=== PATIENT | male | born 1995 | race Caucasian/White ===

== ENCOUNTER 2021-05-02 15:07 | Emergency (ER) | payer OTHER, SELFPAY ==
[2021-05-02 15:11] VITALS: BP 162/97; PULSE 89; RESP 18; TEMP 36.8; O2SAT 99
[2021-05-02 16:05] LABS: Add Manual Diff / Slide Review NO; Basophils Absolute Auto 0 /uL (0-100); Basophils Percent Auto 0.2 % (0-2); Eosinophils Absolute Auto 100 /uL (0-450); Eosinophils Percent Auto 1.4 % (2-4); Hematocrit 50.8 % (41-53); Hemoglobin 17.2 g/dL (13.5-17.5); Lymphocytes Absolute Auto 1700 /uL (1100-4500); Lymphocytes Percent Auto 30.7 % (25-40); Mean Corpuscular HGB Conc 33.9 % (30-36); Mean Corpuscular Hemoglobin 29.8 PG (26-34); Monocytes Absolute Auto 700 /uL (0-900); Monocytes Percent Auto 12.6 % (3-14); Neutrophils Absolute Auto 3100 /uL (1500-7000); Neutrophils Percent Auto 55.1 % (50-75); Platelet Count 225 X10^3/uL (150-400); Red Blood Cell Count 5.77 X10^6/uL (4.5-5.9); Red Cell Distribution Width 13.3 % (11.6-14.8); White Blood Cell Count 5.6 X10^3/uL (4.5-11.0)
[2021-05-02 16:11] LABS: Alanine Aminotransferase 32 IU/L (<50); Albumin 4.9 g/dL (3.5-5.0); Albumin Globulin Ratio 1.3 (1.0-2.8); Alkaline Phosphatase 53 U/L (38-126); Aspartate Aminotransferase 33 IU/L (17-59); BUN Creatinine Ratio 11.5 (6-22); Bilirubin Total 0.9 mg/dL (0.2-1.3); Blood Urea Nitrogen 11 mg/dL (9-20); Calcium 10.3 mg/dL (8.4-10.2); Carbon Dioxide 30 mmol/L (22-32); Chloride 103 mmol/L (98-107); Estimated Glomerular Filt Rate > 60.0 mL/min (>60); Globulin 3.9 g/dL (1.7-4.1); Glucose 95 mg/dL (70-100); HEMOLYSIS < 15 (0-50); Lipase 76 U/L (23-300); Potassium 4.1 mmol/L (3.4-5.1); Sodium 140 mmol/L (137-145); Total Protein 8.8 g/dL (6.3-8.2)
[2021-05-02 18:32] VITALS: BP 158/85
[2021-05-02 18:33] VITALS: PULSE 92; O2SAT 97
--- NOTE | 2021-05-02 18:42 | ED_ITS ---
HPI - Abdominal Pain General Chief Complaint: Abdominal Pain Stated Complaint: RT SIDE ABDOMINAL PAIN Time Seen by Provider: 05/02/21 18:38 Source: patient Mode of arrival: Ambulatory Limitations: no limitations History of Present Illness HPI narrative: This is a 25-year-old male comes emergency department with concern for right- sided abdominal pain for the past 2 days. Patient states it has been very mild he took some ibuprofen last night. Patient states he has had a low-grade temperature that has not been over 100F. He has not any nausea or vomiting. No diarrhea constipation. No dysuria urgency or frequency. No black or flank pain. The pain has not migrated removed location he has appreciated lumps or bulges. He is otherwise healthy with no daily medications. No prior surgeries. He is allergic to penicillin. He is accompanied by his today. Related Data Home Medications Medication Instructions Recorded Confirmed [STRATERA] #0 12/10/03 Allergies Allergy/AdvReac Type Severity Reaction Status Date / Time PENICILLIN Allergy Mild Rash Uncoded 08/09/17 13:06 Review of Systems Review of Systems ROS Unobtainable: All systems reviewed & are unremarkable except as noted in HPI and below Patient History Social History Smoking Status: Never smoker Smoking Status: Never smoker Exam Narrative Exam Narrative: GENERAL: Alert and oriented x three, well-appearing male in no acute distress. Patient sitting the edge of bed comfortably. HEENT: Head normocephalic, atraumatic, EOMI, pupils reactive, face symmetric, moist mucous membranes NECK: Supple, full range of motion CARDIOVASCULAR: Regular rate and rhythm without murmurs, rubs or gallops. RESPIRATORY: Breath sounds equal bilaterally, no wheezes rales or rhonchi. ABDOMEN: Soft, patient has very mild right lower quadrant tenderness with very deep palpation. Otherwise he is nontender with mild to moderate palpation. Normoactive bowel sounds all 4 quadrants. No guarding or rebound, rigidity, no mass. : No CVA tenderness EXTREMITIES: Normal range of motion, no clubbing or edema. Neurovascularly intact NEUROLOGICAL: Cranial nerves II through XII grossly intact. Moving all ext remities SKIN: Warm, dry, no petechiae, no rashes or lesions. Initial Vital Signs Initial Vital Signs: Vital Signs Temperature 98.2 F 05/02/21 15:11 Pulse Rate 89 05/02/21 15:11 Respiratory Rate 18 05/02/21 15:11 Blood Pressure 162/97 H 05/02/21 15:11 Pulse Oximetry 99 05/02/21 15:11 Course Orders Ordered: ED Orders 05/02/21 14:18 Complete Blood Count AUTO DIFF Stat Comprehensive Metabolic Panel Stat Lipase Stat 05/02/21 15:58 EKG-12 Lead Stat Vital Signs Vital signs: Vital Signs - 8 hr 05/02/21 15:11 05/02/21 18:32 05/02/21 18:33 Temperature 98.2 F Pulse Rate 89 92 H Respiratory Rate 18 Blood Pressure 162/97 H 158/85 H Pulse Oximetry 99 97 MDM - Abdominal Pain Lab Data Result diagrams: 05/02/21 14:18 05/02/21 14:18 Labs: Lab Results 05/02/21 05/02/21 Range/Units 14:18 14:18 WBC 5.6 (4.5-11.0) X10^3/uL RBC 5.77 (4.5-5.9) X10^6/uL Hgb 17.2 (13.5-17.5) g/dL Hct 50.8 (41-53) % MCV 88.0 (80-100) fL MCH 29.8 (26-34) PG MCHC 33.9 (30-36) % RDW 13.3 (11.6-14.8) % Plt Count 225 (150-400) X10^3/uL Neut % (Auto) 55.1 (50-75) % Lymph % (Auto) 30.7 (25-40) % [place] % (Auto) 12.6 (3-14) % Eos % (Auto) 1.4 L (2-4) % Baso % (Auto) 0.2 (0-2) % Neut # (Auto) 3100 (6445-3118) /uL Lymph # (Auto) 1700 (4827-2267) /uL [place] # (Auto) 700 (0-900) /uL Eos # (Auto) 100 (0-450) /uL Baso # (Auto) 0 (0-100) /uL Sodium 140 (137-145) mmol/L Potassium 4.1 (3.4-5.1) mmol/L Chloride 103 (98-107) mmol/L Carbon Dioxide 30 (22-32) mmol/L BUN 11 (9-20) mg/dL Creatinine 0.96 (0.66-1.25) mg/dL Estimated GFR > 60.0 (>60) mL/min BUN/Creatinine Ratio 11.5 (6-22) Glucose 95 (70-100) mg/dL Calcium 10.3 H (8.4-10.2) mg/dL Total Bilirubin 0.9 (0.2-1.3) mg/dL AST 33 (17-59) IU/L ALT 32 (<50) IU/L Alkaline Phosphatase 53 (38-126) U/L Total Protein 8.8 H (6.3-8.2) g/dL Albumin 4.9 (3.5-5.0) g/dL Globulin 3.9 (1.7-4.1) g/dL Albumin/Globulin Ratio 1.3 (1.0-2.8) Lipase 76 (23-300) U/L Point of care testing: Urine Dip Bedside Urine Glucose Negative Bedside Urine Bilirubin - Negative Bedside Urine Ketone - Negative Urine Specific [place] 1.015 Bedside Urine Occult Blood - Negative Bedside Urine pH 7 Bedside Urine Protein - Negative Bedside Urine Urobilinogen - Negative Bedside Urine Nitrite - Negative Bedside Urine Leukocytes - Negative Esterase MDM Narrative Medical decision making narrative: Discussed with patient his labs and physical evaluation are somewhat reassuring but he does have right lower quadrant tenderness although quite mild on examination. Patient and I discussed options including CT imaging, ultrasound which may or may not be able to visualize his appendix or watchful waiting with for intent to return if worsening symptoms. After discussion of risks versus benefits the patient elects the ladder with watchful waiting. We discussed return precautions and signs and symptoms to watch for. Discharge Plan Departure Patient Disposition: Home Clinical Impression: Abdominal pain Instructions: DI for Abdominal Pain-Adult Activity Restrictions/Additional Instructions: Follow up in the next 2-3 days if your symptoms are not improving. There is a potential for appendicitis as discussed based on your exam findings today I think watchful waiting is appropriate but it is important to return for re- evaluation if not improving or worsening. You may take Tylenol and/or ibuprofen for pain [id number]. Return for fevers greater 100.4 F, new, worsening or increasing abdominal pain particularly on the right side, back or flank pain, black or bloody stools, vomiting, lightheadedness or passing out or other new or concerning symptoms. Prescriptions: No Action [STRATERA] Qty: 0 0RF
== END 2021-05-02 19:00 | disposition home or self-care (01) ==
PROVIDERS: Emergency Medicine; Emergency Provider Emergency Medicine
DX: R10.31 Right lower quadrant pain (principal)
CPT/HCPCS: 36415; 80053; 81003; 83690; 85025; 99283

== ENCOUNTER → 2022-07-25 08:21 | Outpatient (CLI) | payer OTHER, MEDICAID, SELFPAY ==
--- NOTE | 2022-07-25 | DI.US.S_ITS ---
PROCEDURE: US ABDOMEN COMPLETE INDICATIONS: Unspecified abdominal pain TECHNIQUE: Real-time scanning was performed of the abdominal and retroperitoneal organs, with image documentation. COMPARISON: None. FINDINGS: Liver: Liver is normal in size and homogeneous in echotexture. Gallbladder: No gallstones identified. Normal gallbladder wall. No pericholecystic fluid. Negative sonographic Pham sign. Biliary ducts: Intrahepatic bile ducts are non-dilated. Extrahepatic bile duct caliber measures 3.5 mm. Normal is 6-7 mm or less in diameter, or 10 mm or less post-cholecystectomy. Pancreas: Visualized portions of the pancreas are sonographically normal. Spleen: Spleen is normal in size and homogeneous in echotexture. Kidneys: Kidneys are normal in size and echotexture. Right kidney measures 10.8 cm long; left kidney measures 10.4 cm long. No hydronephrosis or nephrolithiasis. No solid masses. Aorta: Visualized aorta is normal in caliber at less than 3 cm. Iliacs: Proximal common iliac arteries are normal in caliber at less than 2.5 cm. IVC: Intrahepatic inferior vena cava is patent. Miscellaneous: No free abdominal fluid. IMPRESSION: No source for epigastric pain identified. Dictated by: Madi Dennis [facility] Interpreted: Jarod Wren MD on 07/25/2022 at 8:54 Transcribed by: DAVID on 07/25/2022 at 8:55 Approved by: Roderick Wren M.D. on 07/25/2022 at 12:35
== END ==
PROVIDERS: PCP Family Medicine; Referring Provider Family Medicine; Visit Provider Family Medicine
DX: R10.9 Unspecified abdominal pain (principal)
CPT/HCPCS: 76700

== ENCOUNTER → 2022-10-12 11:39 | Outpatient (CLI) | payer OTHER, MEDICAID, SELFPAY | PROVIDERS: PCP Family Medicine; Visit Provider Nurse Practitioner Family | DX: J02.9 Acute pharyngitis, unspecified (principal) | CPT/HCPCS: 87070 ==